=== PATIENT | male | born 1980 | race African-American/Black ===

== ENCOUNTER 2019-04-07 07:54 | Emergency (ER) | payer BC, OTHER ==
[2019-04-07] MEDS ORDERED: Ketorolac Tromethamine 30 MG/ML VIAL ONE ×2 (08:51→08:55)
--- NOTE | 2019-04-07 09:02 | RAD ---
LUMBAR SPINE 3 VIEWS: Date: 04/07/2019 HISTORY: Low back pain following injury from trauma. FINDINGS: The disc spaces are adequately preserved. No acute fracture or dislocation. No significant malalignme nt. IMPRESSION: Unremarkable lumbar spine 3 views. POS: [facility]
== END 2019-04-07 09:09 | disposition home or self-care (01) ==
LOC: ERS 07:54
DX: S39.012A Strain of muscle, fascia and tendon of lower back, initial encounter (principal); I10 Essential (primary) hypertension; V03.00XA Pedestrian on foot injured in collision with car, pick-up truck or van in nontraffic accident, initial encounter; Y92.59 Other trade areas as the place of occurrence of the external cause
CPT/HCPCS: 72100; 96372; J1885